=== PATIENT | female | born 1985 | race Caucasian/White ===

== ENCOUNTER 2018-01-02 12:25 | Emergency (ER) | payer SELFPAY ==
[2018-01-02 12:26] VITALS: BP 146/92; PULSE 89; RESP 18; TEMP 36.6; O2SAT 98; BMI 34.9
--- NOTE | 2018-01-02 12:38 | RAD_ITS ---
STUDY: X-RAY - RIGHT FOOT CLINICAL: Female, 32 years old. Injury and pain. Medial ankle TECHNIQUE: 3 view(s) of the foot. COMPARISON: None. FINDINGS: Fifth metatarsal base is within normal limits. The remaining metatarsals are within normal limits. Anterior process of the calcaneus is within normal limits. Calcaneal spurring. Os navicularis present IMPRESSION: No evidence for an acute fracture seen. Electronically Signed: Quintin Tomlinson, at 13:06 EDT Tel , Service support , RAD/Foot min 3 Views
--- NOTE | 2018-01-02 12:47 | RAD_ITS ---
STUDY: X-RAY - RIGHT ANKLE REASON FOR EXAM: Female, 32 years old. Injury and pain TECHNIQUE: 3 view(s) of the ankle. COMPARISON: None. FINDINGS: No evidence for an acute fracture or dislocation. The talar dome is intact. The distal fibula is within normal limits. Anterior process of the calcaneus is within normal limits. The base of the fifth metatarsal base is within normal limits. Calcaneal spurring seen. There is osseous productive changes with spurring in the region of the talonavicular joint IMPRESSION: No definite evidence for an acute fracture seen. Soft tissue swelling of the ankle joint Electronically Signed: Quintin Tomlinson, at 13:05 EDT Tel , Service support , RAD/Ankle min 3 Views
--- NOTE | 2018-01-02 13:32 | ED.VISSUMM ---
- ER Visit Summary Date of Service: 01/02/18 Chief Complaint: Right ankle pain History of Present Illness: The patient is a 32 F who rolled her ankle last week. Patient thinks that she just sprained it. It is still swollen and bruised that she wanted to have it checked. She does report some abrasions on her left knee from the fall but denies significant pain to this area. She denies striking her head. Physical Examination: Vital signs are unremarkable. Head neck examination was no external sign of trauma. Heart is regular rate and rhythm. Lung sounds are clear. Abdomen is soft and nontender. Right lower extremity examination reveals the right ankle and foot to be edematous. She has medial and lateral right ankle tenderness over the malleoli. There is some areas of ecchymosis at the base of toes 2 through 4. There is no tenderness of the proximal fibula. Left lower extremity examination reveals abrasions over the anterior knee without bony tenderness. Test Results: Right foot and ankle x-rays are obtained. There is evidence of soft tissue swelling without definite fracture. Emergency Department Course and Treatment: Patient was placed in a stirrup air splint. She will continue Tylenol or ibuprofen at home as needed. Treatment Plan: [] Disposition: Discharge Impression: Right ankle sprain This note was generated with [employer] dictation software. It may contain incorrect words, spelling, and punctuation that were not noted in review of the chart prior to signing ED Disposition - Plan for ED Patient: Disposition: Home or Assisted Living Chief Complaint: Lower Extremity Injury Instructions: ED Sprain Ankle W X Ray Referrals: Richard Gibson DO [STAFF PHYSICIAN] - As Needed
== END 2018-01-02 13:45 | disposition home or self-care (01) ==
PROVIDERS: Emergency Provider Emergency Medicine
DX: S93.401A Sprain of unspecified ligament of right ankle, initial encounter (principal); Z72.0 Tobacco use; X50.1XXA Overexertion from prolonged static or awkward postures, initial encounter; Y93.89 Activity, other specified; Y92.89 Other specified places as the place of occurrence of the external cause; Y99.8 Other external cause status
CPT/HCPCS: 73610; 73630; 99283

== ENCOUNTER → 2023-03-20 | Outpatient (CLI) | payer OTHER, SELFPAY ==
--- NOTE | 2023-03-20 12:42 | MRI_ITS ---
EXAM: MR RIGHT LOWER EXTREMITY WITHOUT INTRAVENOUS CONTRAST, ANKLE CLINICAL INDICATION: right ankle pain, mostly medial and across top of foot TECHNIQUE: Multiplanar and multisequence MR images of the right ankle without intravenous contrast. COMPARISON: No relevant prior studies available. FINDINGS: LIGAMENTS: ANTERIOR TALOFIBULAR: Unremarkable. Intact. POSTERIOR TALOFIBULAR: Unremarkable. Intact. ANTERIOR TIBIOFIBULAR: Unremarkable. Intact. POSTERIOR TIBIOFIBULAR: Unremarkable. Intact. CALCANEOFIBULAR: Unremarkable. Intact. DELTOID: Unremarkable. Intact. SPRING: Unremarkable. Intact. LISFRANC: Unremarkable. Intact. TENDONS: ACHILLES: Unremarkable. Intact. FLEXOR: Tenosynovitis involving the medial flexor tendons. EXTENSOR: Unremarkable. Intact. PERONEAL: Unremarkable. Intact. TIBIALIS ANTERIOR: Unremarkable. Intact. TIBIALIS POSTERIOR: Unremarkable. Intact. MUSCLES: Unremarkable. Normal bulk and signal. FLUID: Large tibiotalar joint effusion with synovitis. Moderate posterior subtalar joint effusion with synovitis. SINUS TARSI: Unremarkable. Normal fat in the sinus tarsi. TARSAL TUNNEL: Unremarkable. PLANTAR FASCIA: Thickening of the central cord of plantar aponeurosis without active plantar fasciitis. CARTILAGE: Unremarkable. No osteochondral lesion. Articular cartilage intact. BONES/JOINTS: Bone marrow edema involving the navicular/ talonavicular articulation. Small subchondral cyst indicating remote osteochondral injury at the medial talar dome. Small plantar and posterior calcaneal enthesophytes. Bone marrow edema involving the intermediate cuneiform and adjacent proximal aspect of the second metatarsal. Bone marrow edema also seen involving the navicular without fracture line. OTHER SOFT TISSUES: Tiny cyst along the fibular head. Fluid signal in the sinus Tarsi can be seen with sinus Tarsi syndrome in the appropriate clinical setting. MRI/Lower Ext Joint Only (Routine) IMPRESSION: 1. Small subchondral cyst indicating probable remote osteochondral injury at the medial talar dome. 2. Large tibiotalar joint effusion with synovitis. Moderate posterior subtalar joint effusion with synovitis. 3. Bone marrow edema involving the navicular/ talonavicular articulation. 4. Mild tenosynovitis involving the peroneal tendons and medial flexor tendons. 5. Fluid signal in the sinus Tarsi can be seen with sinus Tarsi syndrome in the appropriate clinical setting. Electronically Signed: Mio Mathis MD at 2:50 EDT ,
== END | disposition home or self-care (01) ==
LOC: MRI 12:38
PROVIDERS: PCP Student in an Organized Health Care Education/Training Program; Referring Provider Podiatrist; Visit Provider Podiatrist
DX: M79.671 Pain in right foot (principal); M66.371 Spontaneous rupture of flexor tendons, right ankle and foot; M66.861 Spontaneous rupture of other tendons, right lower leg
CPT/HCPCS: 73721